=== PATIENT | female | born 1995 | race African-American/Black ===

== ENCOUNTER 2021-04-02 15:16 | Emergency (ER) | payer OTHER ==
[~2021-04-02] VITALS: Ht 165.1 cm; Wt 95.3 kg
[~2021-04-02 15:16] MED LIST: KEFLEX500 M1 PO; PULMICORT0.25 MG/2 INH; VENTOLIN HFA 1818 GM; ZYRTEC10 MG
[2021-04-02 15:18] VITALS: BP 120/73
[2021-04-02] MEDS ORDERED: VENTOLIN HFA 1818 GM INH (19:06)
== END 2021-04-02 19:09 | disposition home or self-care (01) ==
LOC: ER 15:16
DX: U07.1 COVID-19 (principal); R06.02 Shortness of breath; J45.909 Unspecified asthma, uncomplicated; Z91.09 Other allergy status, other than to drugs and biological substances; Z79.899 Other long term (current) drug therapy; Z79.51 Long term (current) use of inhaled steroids